=== PATIENT | female | born 2000 | race African-American/Black ===

== ENCOUNTER 2019-08-07 16:31 | Emergency (ER) | payer SELFPAY ==
[~2019-08-07] VITALS: Ht 175.3 cm; Wt 83.0 kg
--- OUTSIDE RECORDS SUMMARY | 2019-08-07 16:34 | XMS REPORT | Clinical Summary ---
Author Author [facility] Address Unknown Phone Unavailable Care Team Providers Care Events Specialist Name Role Phone Sharpless PCP Allergies No Known Allergies Medications No known medications Active Problems Not on file Social History Date Tobacco Use Types Packs/Day Years Used Never Smoker Smokeless Tobacco: Never Used Sex Assigned at Date Recorded Not on file Industry Job Start Date Occupation Not on file Not on file Not on file Travel End Travel History Travel Start No recent travel history available. Last Filed Vital Signs Not on file Plan of Treatment Not on file Results Not on fileafter 08/06/2018 Insurance Payer Benefit Subscriber ID Type Phone Address Plan / Group MEDICAID - MEDICAID MGD MEDICAID xxxxxxxxx [employer] id [employer] Non-Contra cted
--- OUTSIDE RECORDS SUMMARY | 2019-08-07 16:35 | XMS REPORT | Continuity of Care Document ---
Author Author [facility] t Organization [facility] Address [address] [place] [address] Phone Unavailable Care Team Providers Care Packaging Clerk Name Role Phone Sharpless PCP Payers Payer Name Policy Type Policy Number Effective Date Expiration Date S ource Problems This patient has no known problems. Allergies, Adverse Reactions, Alerts Allergy Name Allergy Type Status Severity Reaction(s) Onset Date Inacti ve Date Treating Clinician Comments Source No Known Allergies DA Active U 2019-03-22 00:00:00 [facility] No Known Allergies DA Active U 2016-02-27 00:00:00 [facility] Social History Social Habit Start Date Stop Date Quantity Comments Source Sex Assigned At [facility] Smoking Status Start Date Stop Date Source Never smoker [facility] Medications This patient has no known medications. Procedures This patient has no known procedures. Results Test Description Test Time Test Comments Results Result Comments Source URINALYSIS COMPLETE 2019-06-03 21:30:00 Test Item UA COLOR (test code = COLU) YELLOW YELLOW UA APPEARANCE (test code = APPU) SLIGHT CLOUDY CLEAR UA GLUCOSE DIPSTICK (test code = DGLUU) NORMAL MG/DL NORMAL UA BILIRUBIN DIPSTICK (test code = BILU) NEGATIVE MG/DL NEGATIVE UA KETONE DIPSTICK (test code = KETU) 5 MG/DL NEGATIVE UA SPECIFIC GRAVITY (test code = SGU) 1.015 1.003-1.030 N UA BLOOD DIPSTICK (test code = RADHA) NEGATIVE Indra/mm3 NEGATIVE UA PH DIPSTICK (test code = ABDIFATAH) 7.0 5.0-9.0 N UA PROTEIN DIPSTICK (test code = PROU) NEGATIVE MG/DL NEGATIVE UA UROBILINIOGEN DIPSTICK (test code = URO) 1 MG/DL NORMAL A UA NITRITE DIPSTICK (test code = CHIKA) NEGATIVE NEGATIVE UA LEUKOCYTE ESTERASE DIPSTICK (test code = LEUU) TRACE /mm3 NEGA TIVE A UA CULTURE NEEDED? (test code = UACULT) YES,WBC>10 & EPI<25 Criteria Culture Chk SOURCE OF URINE: CLEAN CATCHUA [id number] 21:30:00* Test Item Value Reference Range Interpretation Comments UA RBC (test code = RBCU) 0-3 RBC/HPF 0-3 UA WBC (test code = XWBCU) 10-20 WBC/HPF 0-5 A UA EPITHELIAL CELLS (test code = EPIU) FEW EPI/HPF FEW UA BACTERIA (test code = XBACU) MODERATE NONE A SOURCE OF URINE: CLEAN CATCHUR HCG [id number] 21:30:00* Test Item Value Reference Range Interpretation Comments UR HCG QUAL (test code = HCGQLU) NEGATIVE NEGATIVE SOURCE OF URINE: CLEAN CATCHURINALYSIS [id number] 21:19:00* Test Item Value Reference Range Interpretation Comments UA COLOR (test code = COLU) YELLOW YELLOW UA APPEARANCE (test code = APPU) SLIGHT CLOUDY CLEAR UA GLUCOSE DIPSTICK (test code = DGLUU) NORMAL MG/DL NORMAL UA BILIRUBIN DIPSTICK (test code = BILU) NEGATIVE MG/DL NEGATIVE UA KETONE DIPSTICK (test code = KETU) 5 MG/DL NEGATIVE UA SPECIFIC GRAVITY (test code = SGU) 1.015 1.003-1.030 N UA BLOOD DIPSTICK (test code = RADHA) NEGATIVE Indra/mm3 NEGATIVE UA PH DIPSTICK (test code = ABDIFATAH) 7.0 5.0-9.0 N UA PROTEIN DIPSTICK (test code = PROU) NEGATIVE MG/DL NEGATIVE UA UROBILINIOGEN DIPSTICK (test code = URO) 1 MG/DL NORMAL A UA NITRITE DIPSTICK (test code = CHIKA) NEGATIVE NEGATIVE UA LEUKOCYTE ESTERASE DIPSTICK (test code = LEUU) TRACE /mm3 NEGA TIVE A UA CULTURE NEEDED? (test code = UACULT) Criteria Culture Chk SOURCE OF URINE: CLEAN CATCHUA [id number] 21:19:00* Test Item Value Reference Range Interpretation Comments UA RBC (test code = RBCU) RBC/HPF 0-3 UA WBC (test code = XWBCU) WBC/HPF 0-5 UA EPITHELIAL CELLS (test code = EPIU) EPI/HPF FEW UA BACTERIA (test code = XBACU) NONE SOURCE OF URINE: CLEAN CATCHUR HCG [id number] 21:19:00* Test Item Value Reference Range Interpretation Comments UR HCG QUAL (test code = HCGQLU) NEGATIVE NEGATIVE SOURCE OF URINE: CLEAN CATCHURINALYSIS [id number] 21:18:00* Test Item Value Reference Range Interpretation Comments UA COLOR (test code = COLU) YELLOW YELLOW UA APPEARANCE (test code = APPU) SLIGHT CLOUDY CLEAR UA GLUCOSE DIPSTICK (test code = DGLUU) NORMAL MG/DL NORMAL UA BILIRUBIN DIPSTICK (test code = BILU) NEGATIVE MG/DL NEGATIVE UA KETONE DIPSTICK (test code = KETU) 5 MG/DL NEGATIVE UA SPECIFIC GRAVITY (test code = SGU) 1.015 1.003-1.030 N UA BLOOD DIPSTICK (test code = RADHA) NEGATIVE Idnra/mm3 NEGATIVE UA PH DIPSTICK (test code = ABDIFATAH) 7.0 5.0-9.0 N UA PROTEIN DIPSTICK (test code = PROU) NEGATIVE MG/DL NEGATIVE UA UROBILINIOGEN DIPSTICK (test code = URO) 1 MG/DL NORMAL A UA NITRITE DIPSTICK (test code = CHIKA) NEGATIVE NEGATIVE UA LEUKOCYTE ESTERASE DIPSTICK (test code = LEUU) TRACE /mm3 NEGA TIVE A UA CULTURE NEEDED? (test code = UACULT) Criteria Culture Chk SOURCE OF URINE: CLEAN CATCHUA [id number] 21:18:00* Test Item Value Reference Range Interpretation Comments UA RBC (test code = RBCU) RBC/HPF 0-3 UA WBC (test code = XWBCU) WBC/HPF 0-5 UA EPITHELIAL CELLS (test code = EPIU) EPI/HPF FEW UA BACTERIA (test code = XBACU) NONE SOURCE OF URINE: CLEAN CATCHUR HCG [id number] 21:18:00* Test Item Value Reference Range Interpretation Comments UR HCG QUAL (test code = HCGQLU) NEGATIVE SOURCE OF URINE: CLEAN CATCHURINALYSIS [id number] 21:18:00* Test Item Value Reference Range Interpretation Comments UA COLOR (test code = COLU) YELLOW YELLOW UA APPEARANCE (test code = APPU) SLIGHT CLOUDY CLEAR UA GLUCOSE DIPSTICK (test code = DGLUU) NORMAL MG/DL NORMAL UA BILIRUBIN DIPSTICK (test code = BILU) NEGATIVE MG/DL NEGATIVE UA KETONE DIPSTICK (test code = KETU) 5 MG/DL NEGATIVE UA SPECIFIC GRAVITY (test code = SGU) 1.015 1.003-1.030 N UA BLOOD DIPSTICK (test code = RADHA) NEGATIVE Indra/mm3 NEGATIVE UA PH DIPSTICK (test code = ABDIFATAH) 7.0 5.0-9.0 N UA PROTEIN DIPSTICK (test code = PROU) NEGATIVE MG/DL NEGATIVE UA UROBILINIOGEN DIPSTICK (test code = URO) 1 MG/DL NORMAL A UA NITRITE DIPSTICK (test code = CHIKA) NEGATIVE NEGATIVE UA LEUKOCYTE ESTERASE DIPSTICK (test code = LEUU) TRACE /mm3 NEGA TIVE A UA CULTURE NEEDED? (test code = UACULT) Criteria Culture Chk SOURCE OF URINE: CLEAN CATCHUA [id number] 21:18:00* Test Item Value Reference Range Interpretation Comments UA RBC (test code = RBCU) RBC/HPF 0-3 UA WBC (test code = XWBCU) WBC/HPF 0-5 UA EPITHELIAL CELLS (test code = EPIU) EPI/HPF FEW UA BACTERIA (test code = XBACU) NONE SOURCE OF URINE: CLEAN CATCHUR HCG [id number] 21:18:00* Test Item Value Reference Range Interpretation Comments UR HCG QUAL (test code = HCGQLU) NEGATIVE SOURCE OF URINE: CLEAN CATCHUrine [id number] 08:59:09 C Urine Added by [email or web address] growth at 24 hours. No growth at [address] Chest w/ [id number] 03:56:53Patient: DANK GARNICA Date/Time05/22/2019 03:41 CDTReason for ExamTraumaReportLOCATION: [id number]: CT CHEST WITH CONTRASTEXAM: CT ABDOMEN AND PELVIS WITH CONTRASTINDICATION: , TraumaCOMPARISON: None.TECHNIQUE: Helically acquired axial CT images of the chest, abdomen, and pelvis were obtained. 100 ml of Omnipaque 300 was given intravenously. Up-to-date CT equipment and radiation dose reduction techniques were utilized. Automatic exposure control was utilized.FINDINGS:Limited views the inferior neck soft tissues are normal.No mediastinal hematoma or aortic injury. The heart is normal in size. No pericardial effusion is seen. No mediastinal or hilar adenopathy is seen.The trachea and main bronchi are patent. No pneumothorax or pleural effusion is seen. No lung laceration or contusion.Liver and spleen are intact. Adrenal glands and pancreas normal. Gallbladder is unremarkable. Abdomen distention. Portal vascular is patent.Kidneys enhance symmetrically. No renal laceration or contusion. No hydronephrosis or hydroureter. Urinary bladder is intact. Uterus and adnexal structures are age-appropriate in appearance.No bowel abnormality seen to suggest injury. No free air or free fluid is present. No bowel obstruc tion.Abdominal aorta is intact and normal in caliber. IVC is normal. Bones are i ntact. Peripheral soft tissues are unremarkable.IMPRESSION: No traumatic injury identified. Final Dictated by: MD Hobbs Jesse MDictated DT/TM: 05/22/2019 3:53 amSigned by: MD Hobbs Jesse MSigned (Electronic Signature): 05/22/2019 3:56 amCT Abdomen and Pelvis w/ [id number] 03:56:53Patient: DANK GARNICA Date/Time05/22/2019 03:41 CDTReason for ExamTraumaReportLOCATION: [id number]: CT CHEST WITH CONTRASTEXAM: CT ABDOMEN AND PELVIS WITH CONTRASTINDICATION: , Trauma COMPARISON: None.TECHNIQUE: Helically acquired axial CT images of the chest, abd omen, and pelvis were obtained. 100 ml of Omnipaque 300 was given intravenously. Up-to-date CT equipment and radiation dose reduction techniques were utilized. Automatic exposure control was utilized.FINDINGS:Limited views the inferior neck soft tissues are normal.No mediastinal hematoma or aortic injury. The heart is normal in size. No pericardial effusion is seen. No mediastinal or hilar adenop athy is seen.The trachea and main bronchi are patent. No pneumothorax or pleural effusion is seen. No lung laceration or contusion.Liver and spleen are intact. Adrenal glands and pancreas normal. Gallbladder is unremarkable. Abdomen distent ion. Portal vascular is patent.Kidneys enhance symmetrically. No renal laceratio n or contusion. No hydronephrosis or hydroureter. Urinary bladder is intact. Pierron eric and adnexal structures are age-appropriate in appearance.No bowel abnormalit y seen to suggest injury. No free air or free fluid is present. No bowel obstruc tion.Abdominal aorta is intact and normal in caliber. IVC is normal. Bones are i ntact. Peripheral soft tissues are unremarkable.IMPRESSION: No traumatic injury identified. Final Dictated by: MD Hobbs Jesse MDictated DT/TM: 05/22/2019 3:53 amSigned by: MD Hobbs Jesse MSigned (Electronic Signature): 05/22/2019 3:56 [facility] [id number] 03:51:09Patient: DANK GARNICA Date/Time05/22/2019 03:41 CDTReason for ExamTraumaReportLOCATION: [id number]: CT HEAD WITHOUT CONTRASTINDICATION: Trauma,COMPARISON: None.TECHNIQUE: Multiple CT images of the head were obtained. No intravenous contrast was given. Up-to-date CT equipment and radiation dose reduction techniques were utilized. Automatic exposure control was utilized.FINDINGS: No intracranial hemorrhage or extra-axia l collection is seen. No midline shift or mass effect is identified. There is no territorial infarct. The ventricles, sulci and cisterns are normal.The calvarium is intact. Peripheral soft tissues are normal. Paranasal sinuses and mastoid air cells are clear.IMPRESSION: No intracranial hemorrhage or fracture. EXAM : CT CERVICAL SPINE WITHOUT CONTRASTINDICATION: Neck pain, TraumaCOMPARISON: No ne.TECHNIQUE: Axially oriented CT images were obtained through the entire cervi clifford spine, without contrast. Coronal and sagittal reformations are also provide d. Up-to-date CT equipment and radiation dose reduction techniques were utilize d. Automatic exposure control was utilized.FINDINGS:No fracture, malalignment o r other bony abnormality is identified. Prevertebral soft tissues are normal. De ep soft tissue of the neck are normal.Visualized lung apices and upper mediastin um are normal. Limited views of the skull base, paranasal sinuses, and mastoid a ir cells are unremarkable.IMPRESSION: No fracture or dislocation of the cervical spine. Final Dictated by: MD Hobbs Jesse MDictated DT/TM: 04/30 3:49 amSigned by: MD Hobbs Jesse MSigned (Electronic Signature): 3:51 amCT Spine Cervical w/o [id number] 03:51:09Patient: DANK GARNICA Date/Time05/22/2019 03:41 CDTReason for ExamTraumaReportLOCATION: [id number]: CT HEAD WITHOUT CONTRASTINDICATION: Trauma,COMPARISON: None.TECHNIQUE: Multiple CT images of the head were obtained. No intravenous contrast was given. Up-to-date CT equipment and radiation dose reduction techniques were utilized. Automatic exposure control was utilized.FINDINGS: No intracranial hemorrhage or extra-axia l collection is seen. No midline shift or mass effect is identified. There is no territorial infarct. The ventricles, sulci and cisterns are normal.The calvarium is intact. Peripheral soft tissues are normal. Paranasal sinuses and mastoid air cells are clear.IMPRESSION: No intracranial hemorrhage or fracture. EXAM : CT CERVICAL SPINE WITHOUT CONTRASTINDICATION: Neck pain, TraumaCOMPARISON: No ne.TECHNIQUE: Axially oriented CT images were obtained through the entire cervi clifford spine, without contrast. Coronal and sagittal reformations are also provide d. Up-to-date CT equipment and radiation dose reduction techniques were utilize d. Automatic exposure control was utilized.FINDINGS:No fracture, malalignment o r other bony abnormality is identified. Prevertebral soft tissues are normal. De ep soft tissue of the neck are normal.Visualized lung apices and upper mediastin um are normal. Limited views of the skull base, paranasal sinuses, and mastoid a ir cells are unremarkable.IMPRESSION: No fracture or dislocation of the cervical spine. Final Dictated by: MD Hobbs Jesse MDictated DT/TM: 04/30 3:49 amSigned by: MD Hobbs Jesse MSigned (Electronic Signature): 3:51 amComprehensive Metabolic [id number] 02:49:20* Test Item Value Reference Range Interpretation Comments Sodium Level (test code = Sodium Level) 141.0 mmol/L 135.0-145.0 Potassium Level (test code = Potassium Level) 3.5 mmol/L 3.5-5.1 Chloride Level (test code = Chloride Level) 103 mmol/L 98-105 CO2 (test code = CO2) 22 mmol/L 22-29 Anion Gap (test code = Anion Gap) 16 mmol/L 7-16 BUN (test code = BUN) 12.60 mg/dL 6.00-20.00 Creatinine Level (test code = Creatinine Level) 0.70 mg/dL 0.50-0 .90 BUN/Creat Ratio (test code = BUN/Creat Ratio) 18 N Glucose Level (test code = Glucose Level) 119 mg/dL 70-115 H Calcium Level (test code = Calcium Level) 9.2 mg/dL 8.3-10.5 Alk Phos (test code = Alk Phos) 76 U/L 35-104 Bilirubin Total (test code = Bilirubin Total) 0.3 mg/dL 0.1-0.9 Albumin Level (test code = Albumin Level) 4.5 g/dL 3.5-5.2 Protein Total (test code = Protein Total) 8.2 g/dL 6.4-8.3 ALT (test code = ALT) 17 U/L 1-33 AST (test code = AST) 30 U/L 1-32 Globulin (test code = Globulin) 3.7 g/dL 2.9-3.1 H A/G Ratio (test code = A/G Ratio) 1.2 ratio N Comprehensive Metabolic [id number] 02:49:20* Test Item Value Reference Range Interpretation Comments Sodium Level (test code = Sodium Level) 141.0 mmol/L 135.0-145.0 Potassium Level (test code = Potassium Level) 3.5 mmol/L 3.5-5.1 Chloride Level (test code = Chloride Level) 103 mmol/L 98-105 CO2 (test code = CO2) 22 mmol/L 22-29 Anion Gap (test code = Anion Gap) 16 mmol/L 7-16 BUN (test code = BUN) 12.60 mg/dL 6.00-20.00 Creatinine Level (test code = Creatinine Level) 0.70 mg/dL 0.50-0 .90 BUN/Creat Ratio (test code = BUN/Creat Ratio) 18 N Glucose Level (test code = Glucose Level) 119 mg/dL 70-115 H Calcium Level (test code = Calcium Level) 9.2 mg/dL 8.3-10.5 Alk Phos (test code = Alk Phos) 76 U/L 35-104 Bilirubin Total (test code = Bilirubin Total) 0.3 mg/dL 0.1-0.9 Albumin Level (test code = Albumin Level) 4.5 g/dL 3.5-5.2 Protein Total (test code = Protein Total) 8.2 g/dL 6.4-8.3 ALT (test code = ALT) 17 U/L 1-33 AST (test code = AST) 30 U/L 1-32 Globulin (test code = Globulin) 3.7 g/dL 2.9-3.1 H A/G Ratio (test code = A/G Ratio) 1.2 ratio N eGFR AA (test code = eGFR AA) >60 mL/min/1.73 m2 N eGFR (estimated Glomerular Filtration Rate) is an estimated value, calculated from the patient's serum creatinine using the MDRD equation. It is NOT the patient's actual GFR. The eGFR provides a more clinically useful measure of kidney disease than serum creatinine alone.This calculation takes sex and race into account, if the information is provided. If the race is not provided, and the patient is -Aust[place], multiply by 1.212. If sex is not provided, and the patient is female, multiply by 0.742. Results for patients <18 years of age have not been validated by the MDRD study and should be interpreted with caution. eGFR Result Interpretation:eGFR > or = 60 is in the Normal RangeeGFR < 60 may mean kidney diseaseeGFR < 15 may mean kidney failure Ranges recommended by the National Kidney Foundation, http://nkdep.nih.gov Alcohol [id number] 02:49:20* Test Item Value Reference Range Interpretation Comments Ethanol Level (test code = Ethanol Level) 0.28 g/dL 0.00-0.01 H Intoxicated 0.080 g/dL or more Ethanol Inst (test code = Ethanol Inst) 284 N Comprehensive Metabolic [id number] 02:49:20* Test Item Value Reference Range Interpretation Comments Sodium Level (test code = Sodium Level) 141.0 mmol/L 135.0-145.0 Potassium Level (test code = Potassium Level) 3.5 mmol/L 3.5-5.1 Chloride Level (test code = Chloride Level) 103 mmol/L 98-105 CO2 (test code = CO2) 22 mmol/L 22-29 Anion Gap (test code = Anion Gap) 16 mmol/L 7-16 BUN (test code = BUN) 12.60 mg/dL 6.00-20.00 Creatinine Level (test code = Creatinine Level) 0.70 mg/dL 0.50-0 .90 BUN/Creat Ratio (test code = BUN/Creat Ratio) 18 N Glucose Level (test code = Glucose Level) 119 mg/dL 70-115 H Calcium Level (test code = Calcium Level) 9.2 mg/dL 8.3-10.5 Alk Phos (test code = Alk Phos) 76 U/L 35-104 Bilirubin Total (test code = Bilirubin Total) 0.3 mg/dL 0.1-0.9 Albumin Level (test code = Albumin Level) 4.5 g/dL 3.5-5.2 Protein Total (test code = Protein Total) 8.2 g/dL 6.4-8.3 ALT (test code = ALT) 17 U/L 1-33 AST (test code = AST) 30 U/L 1-32 Globulin (test code = Globulin) 3.7 g/dL 2.9-3.1 H A/G Ratio (test code = A/G Ratio) 1.2 ratio N eGFR AA (test code = eGFR AA) >60 mL/min/1.73 m2 N eGFR (estimated Glomerular Filtration Rate) is an estimated value, calculated from the patient's serum creatinine using the MDRD equation. It is NOT the patient's actual GFR. The eGFR provides a more clinically useful measure of kidney disease than serum creatinine alone.This calculation takes sex and race into account, if the information is provided. If the race is not provided, and the patient is -Austrian, multiply by 1.212. If sex is not provided, and the patient is female, multiply by 0.742. Results for patients <18 years of age have not been validated by the MDRD study and should be interpreted with caution. eGFR Result Interpretation:eGFR > or = 60 is in the Normal RangeeGFR < 60 may mean kidney diseaseeGFR < 15 may mean kidney failure Ranges recommended by the National Kidney Foundation, http://nkdep.nih.gov eGFR Non-AA (test code = eGFR Non-AA) >60.00 mL/min/1.73 m2 N eGFR (estimated Glomerular Filtration Rate) is an estimated value, calculated from the patient's serum creatinine using the MDRD equation. It is NOT the patient's actual GFR. The eGFR provides a more clinically useful measure of kidney disease than serum creatinine alone.This calculation takes sex and race into account, if the information is provided. If the race is not provided, and the patient is -Austrian, multiply by 1.212. If sex is not provided, and the patient is female, multiply by 0.742. Results for patients <18 years of age have not been validated by the MDRD study and should be interpreted with caution. eGFR Result Interpretation:eGFR > or = 60 is in the Normal RangeeGFR < 60 may mean kidney diseaseeGFR < 15 may mean kidney failure Ranges recommended by the National Kidney Foundation, http://nkdep.nih.gov Urine Drug [id number] 02:48:34* Test Item Value Reference Range Interpretation Comments Amphetamine Screen Ur (test code = Amphetamine Screen Ur) Negative Negative Barbiturate Screen Ur (test code = Barbiturate Screen Ur) Negative Negative Benzodiazepines Ur (test code = Benzodiazepines Ur) Negative Ne gative Cocaine Screen Ur (test code = Cocaine Screen Ur) Negative Nega tive U Methadone Scr (test code = U Methadone Scr) Negative Negative Opiate Screen Ur (test code = Opiate Screen Ur) Negative Negati ve U PCP Scrn (test code = U PCP Scrn) Negative Negative Cannabinoid Screen Ur (test code = Cannabinoid Screen Ur) Negative Negative U TCA (test code = U TCA) Negative Negative Th e results of all drug screen tests are only preliminary. Clinical consideration and professional judgment should be applied to any drug of abuse test result, particularly when preliminary positive results are obtained. Please order a separate confirmatory test if desired. Urinalysis [id number] 02:20:16* Test Item Value Reference Range Interpretation Comments UA WBC (test code = UA WBC) 0-5 0-5 UA RBC (test code = UA RBC) 0-5 0-5 UA Bacteria (test code = UA Bacteria) Few A UA Squam Epithelial (test code = UA Squam Epithelial) 6-10 A HCG Qualitative [id number] 02:18:46* Test Item Value Reference Range Interpretation Comments hCG Ur (test code = hCG Ur) Negative If the result is "Negative" in patients suspected to be , recommend retest with a sample obtained 48 to 72 hours later, or by ordering a quantitative assay. If the result is "Borderline" miquel ting should be repeated in 48 to 72 hours. Lot # (test code = Lot #) [id number] N Expiration Dt (test code = Expiration Dt) 2020-05-29 N Neg Control (test code = Neg Control) Negative Pos Control (test code = Pos Control) Positive Internal QC (test code = Internal QC) Acceptable Complete Blood Count with [id number] 02:15:27* Test Item Value Reference Range Interpretation Comments WBC (test code = WBC) 6.8 x10 4.4-10.5 RBC (test code = RBC) 4.18 x10 3.75-5.20 Hgb (test code = Hgb) 12.3 g/dL 12.2-14.8 MCV (test code = MCV) 91.60 fL 80.00-100.00 Hct (test code = Hct) 38.3 % 36.5-44.4 MCHC (test code = MCHC) 32.10 g/dL 32.00-37.50 MCH (test code = MCH) 29.4 pg 27.0-32.5 RDW CV (test code = RDW CV) 12.2 % 11.5-14.5 Platelets (test code = Platelets) 347.0 x10 140.0-440.0 MPV (test code = MPV) 9.7 fL N Slide Review (test code = Slide Review) Auto Auto Result created by [email or web address] nRBC (test code = nRBC) 0 N NRBC Abs (test code = NRBC Abs) 0.00 x10 N IPF (test code = IPF) 0 % N Automated [id number] 02:15:27* Test Item Value Reference Range Interpretation Comments Neutro Auto (test code = Neutro Auto) 66.2 % 36.0-70.0 Lymph Auto (test code = Lymph Auto) 27.7 % 12.0-44.0 [place] Auto (test code = [place] Auto) 5.2 % 0.0-11.0 Eos, Auto (test code = Eos, Auto) 0.3 % 0.0-7.0 Basophil Auto (test code = Basophil Auto) 0.3 % 0.0-2.0 Neutro Absolute (test code = Neutro Absolute) 4.5 x10 1.6-7.4 Lymph Absolute (test code = Lymph Absolute) 1.88 x10 .50-4.60 [place] Absolute (test code = [place] Absolute) .35 x10 .00-1.20 Eos Absolute (test code = Eos Absolute) 0.02 x10 0.00-0.74 Baso Absolute (test code = Baso Absolute) 0.02 x10 0.00-0.21 IG [id number] 02:15:27* Test Item Value Reference Range Interpretation Comments IG (test code = IG) 0.3 % 0.0-5.0 IG Abs (test code = IG Abs) 0 x10 N Urinalysis with Culture, if [id number] 02:10:15* Test Item Value Reference Range Interpretation Comments UA Color (test code = UA Color) STRAW Yellow UA Appear (test code = UA Appear) CLEAR Clear UA pH (test code = UA pH) 6.0 UA Spec Grav (test code = UA Spec Grav) 1.010 1.001-1.035 UA Glucose (test code = UA Glucose) NEG Negative UA Bili (test code = UA Bili) NEG Negative UA Ketones (test code = UA Ketones) NEG Negative UA Blood (test code = UA Blood) 10 cells/mcL Negative A UA Protein (test code = UA Protein) NEG Negative UA Urobilinogen (test code = UA Urobilinogen) .2 mg/dL >0.2 UA Nitrite (test code = UA Nitrite) NEG Negative UA Leuk Est (test code = UA Leuk Est) NEG Negative UA Micro Ind? (test code = UA Micro Ind?) Indicated Not Indicate d A COMPREHENSIVE METABOLIC [id number] 23:34:00* Test Item Value Reference Range Interpretation Comments SODIUM (test code = NA) 139 MMOL/L 137-145 N POTASSIUM (test code = K) 3.6 MMOL/L 3.5-5.1 N CHLORIDE (test code = CL) 101 MMOL/L 98-107 N CARBON DIOXIDE (test code = CO2) 28 MMOL/L 22-30 N GLUCOSE (test code = GLU) 90 MG/DL 74-106 N BLOOD UREA NITROGEN (test code = BUN) 10 MG/DL 7-17 N GLOMERULAR FILTRATION RATE (test code = GFR) > 60 Reporting units: ml/min/1.73 m2 (Modified MDRD Formula)Reference Range: > or = 60 ml/min/1.73 m2 CREATININE (test code = CREAT) 0.60 MG/DL 0.52-1.04 N TOTAL PROTEIN (test code = PROT) 8.6 G/DL 6.3-8.2 H ALBUMIN (test code = ALB) 4.5 G/DL 3.5-5.0 N CALCIUM (test code = CA) 9.3 MG/DL 8.4-10.2 N BILIRUBIN TOTAL (test code = BILT) 0.1 MG/DL 0.2-1.3 L SGOT/AST (test code = AST) 35 UNITS/L 14-36 N SGPT/ALT (test code = ALT) 19 UNITS/L <35 ALKALINE PHOSPHATASE (test code = ALKP) 81 UNITS/L 38-126 N [id number] 23:34:00* Test Item Value Reference Range Interpretation Comments LIPASE (test code = LIP) 94 UNITS/L 23-300 N HCG [id number] 23:34:00* Test Item Value Reference Range Interpretation Comments HCG SERUM (test code = HCG) < 2 IU/L ~~~~~~~~~~~~~~~~~~~~~~~~~~~~~~~~~~~~~~~~~~~~~~~~~~~~~~~~~~~~INTERPRETATION OF BHCG QN PERFORMED AT [facility] 0.2-1 WEEKS AFTER CONCEPTION 5-50 1-2 WEEKS AFTER CONCEPTION 50-500 2-3 WEEKS AFTER CONCEPTION 100-5,000 3-4 WEEKS AFTER CONCEPTION 500-10,000 4-5 WEEKS AFTER CONCEPTION 1,000-50,000 5-6 WEEKS AFTER CONCEPTION 10,000-100,0006-8 WEEKS AFTER CONCEPTION 15,000-200,0002-3 MONTHS 10,000-100,000 All values given in ida-International Units per milliliter. SPECIMENS WITH B-HCG LEVELS LESS THAN OR EQUAL TO 5 ida- International Units per milliliter WILL BE REPORTED ZERO OR "NEGATIVE." SPECIMENS WITHB-HCG LEVELS GREATER THAN OR EQUAL TO 25 ida-International Units per milliliter WILL BEREPORTED "POSITIVE." SPECIMENS WITH B-HCG LEVELS GREATERTHAN 5 ida-International Units per milliliter AND LESS THAN 25 ida- International Units per milliliterSHOULD HAVE ADDITIONAL BLOOD SAMPLE DRAWN 48 HOURSLATER AND REPEATED.~~~~~~~~~~~~~~~~~~~~~~~~~~~~~~~~~~~~~~~~~~~~~~~~~~~~~~~~~~~~ COMPREHENSIVE METABOLIC [id number] 23:18:00* Test Item Value Reference Range Interpretation Comments SODIUM (test code = NA) 139 MMOL/L 137-145 N POTASSIUM (test code = K) 3.6 MMOL/L 3.5-5.1 N CHLORIDE (test code = CL) 101 MMOL/L 98-107 N CARBON DIOXIDE (test code = CO2) 28 MMOL/L 22-30 N GLUCOSE (test code = GLU) 90 MG/DL 74-106 N BLOOD UREA NITROGEN (test code = BUN) 10 MG/DL 7-17 N GLOMERULAR FILTRATION RATE (test code = GFR) > 60 Reporting units: ml/min/1.73 m2 (Modified MDRD Formula)Reference Range: > or = 60 ml/min/1.73 m2 CREATININE (test code = CREAT) 0.60 MG/DL 0.52-1.04 N TOTAL PROTEIN (test code = PROT) 8.6 G/DL 6.3-8.2 H ALBUMIN (test code = ALB) 4.5 G/DL 3.5-5.0 N CALCIUM (test code = CA) 9.3 MG/DL 8.4-10.2 N BILIRUBIN TOTAL (test code = BILT) 0.1 MG/DL 0.2-1.3 L SGOT/AST (test code = AST) 35 UNITS/L 14-36 N SGPT/ALT (test code = ALT) 19 UNITS/L <35 ALKALINE PHOSPHATASE (test code = ALKP) 81 UNITS/L 38-126 N [id number] 23:18:00* Test Item Value Reference Range Interpretation Comments LIPASE (test code = LIP) 94 UNITS/L 23-300 N HCG [id number] 23:18:00* Test Item Value Reference Range Interpretation Comments HCG SERUM (test code = HCG) IU/L COMPREHENSIVE METABOLIC [id number] 23:17:00* Test Item Value Reference Range Interpretation Comments SODIUM (test code = NA) 139 MMOL/L 137-145 N POTASSIUM (test code = K) 3.6 MMOL/L 3.5-5.1 N CHLORIDE (test code = CL) 101 MMOL/L 98-107 N CARBON DIOXIDE (test code = CO2) 28 MMOL/L 22-30 N GLUCOSE (test code = GLU) MG/DL 74-106 BLOOD UREA NITROGEN (test code = BUN) MG/DL 7-17 GLOMERULAR FILTRATION RATE (test code = GFR) > 60 Reporting units: ml/min/1.73 m2 (Modified MDRD Formula)Reference Range: > or = 60 ml/min/1.73 m2 CREATININE (test code = CREAT) 0.60 MG/DL 0.52-1.04 N TOTAL PROTEIN (test code = PROT) G/DL 6.3-8.2 ALBUMIN (test code = ALB) 4.5 G/DL 3.5-5.0 N CALCIUM (test code = CA) MG/DL 8.7-9.7 BILIRUBIN TOTAL (test code = BILT) 0.1 MG/DL 0.2-1.3 L SGOT/AST (test code = AST) 35 UNITS/L 14-36 N SGPT/ALT (test code = ALT) UNITS/L <35 ALKALINE PHOSPHATASE (test code = ALKP) UNITS/L 38-126 [id number] 23:17:00* Test Item Value Reference Range Interpretation Comments LIPASE (test code = LIP) UNITS/L 23-300 HCG [id number] 23:17:00* Test Item Value Reference Range Interpretation Comments HCG SERUM (test code = HCG) IU/L COMPREHENSIVE METABOLIC [id number] 23:15:00* Test Item Value Reference Range Interpretation Comments SODIUM (test code = NA) 139 MMOL/L 137-145 N POTASSIUM (test code = K) 3.6 MMOL/L 3.5-5.1 N CHLORIDE (test code = CL) 101 MMOL/L 98-107 N CARBON DIOXIDE (test code = CO2) MMOL/L 22-30 GLUCOSE (test code = GLU) MG/DL 74-106 BLOOD UREA NITROGEN (test code = BUN) MG/DL 7-17 GLOMERULAR FILTRATION RATE (test code = GFR) CREATININE (test code = CREAT) MG/DL 0.52-1.04 TOTAL PROTEIN (test code = PROT) G/DL 6.3-8.2 ALBUMIN (test code = ALB) 4.5 G/DL 3.5-5.0 N CALCIUM (test code = CA) MG/DL 8.7-9.7 BILIRUBIN TOTAL (test code = BILT) MG/DL 0.2-1.3 SGOT/AST (test code = AST) UNITS/L 15-37 SGPT/ALT (test code = ALT) UNITS/L <35 ALKALINE PHOSPHATASE (test code = ALKP) UNITS/L 38-126 [id number] 23:15:00* Test Item Value Reference Range Interpretation Comments LIPASE (test code = LIP) UNITS/L 23-300 HCG [id number] 23:15:00* Test Item Value Reference Range Interpretation Comments HCG SERUM (test code = HCG) IU/L COMPREHENSIVE METABOLIC [id number] 23:14:00* Test Item Value Reference Range Interpretation Comments SODIUM (test code = NA) MMOL/L 137-145 POTASSIUM (test code = K) MMOL/L 3.5-5.1 CHLORIDE (test code = CL) MMOL/L 98-107 CARBON DIOXIDE (test code = CO2) MMOL/L 22-30 GLUCOSE (test code = GLU) MG/DL 74-106 BLOOD UREA NITROGEN (test code = BUN) MG/DL 7-17 GLOMERULAR FILTRATION RATE (test code = GFR) CREATININE (test code = CREAT) MG/DL 0.52-1.04 TOTAL PROTEIN (test code = PROT) G/DL 6.3-8.2 ALBUMIN (test code = ALB) 4.5 G/DL 3.5-5.0 N CALCIUM (test code = CA) MG/DL 8.7-9.7 BILIRUBIN TOTAL (test code = BILT) MG/DL 0.2-1.3 SGOT/AST (test code = AST) UNITS/L 15-37 SGPT/ALT (test code = ALT) UNITS/L <35 ALKALINE PHOSPHATASE (test code = ALKP) UNITS/L 38-126 [id number] 23:14:00* Test Item Value Reference Range Interpretation Comments LIPASE (test code = LIP) UNITS/L 23-300 HCG [id number] 23:14:00* Test Item Value Reference Range Interpretation Comments HCG SERUM (test code = HCG) IU/L URINALYSIS [id number] 23:11:00* Test Item Value Reference Range Interpretation Comments UA COLOR (test code = COLU) YELLOW YELLOW UA APPEARANCE (test code = APPU) CLEAR CLEAR UA GLUCOSE DIPSTICK (test code = DGLUU) NORMAL MG/DL NORMAL UA BILIRUBIN DIPSTICK (test code = BILU) NEGATIVE MG/DL NEGATIVE UA KETONE DIPSTICK (test code = KETU) NEGATIVE MG/DL NEGATIVE UA SPECIFIC GRAVITY (test code = SGU) 1.020 1.003-1.030 N UA BLOOD DIPSTICK (test code = RADHA) 250 Indra/mm3 NEGATIVE A UA PH DIPSTICK (test code = ABDIFATAH) 6.0 5.0-9.0 N UA PROTEIN DIPSTICK (test code = PROU) NEGATIVE MG/DL NEGATIVE UA UROBILINIOGEN DIPSTICK (test code = URO) 1 MG/DL NORMAL A UA NITRITE DIPSTICK (test code = CHIKA) NEGATIVE NEGATIVE UA LEUKOCYTE ESTERASE DIPSTICK (test code = LEUU) NEGATIVE /mm3 NEG ATIVE UA CULTURE NEEDED? (test code = UACULT) NO, WBC<10 Criteria Culture Chk SOURCE OF URINE: CLEAN CATCHUA [id number] 23:11:00* Test Item Value Reference Range Interpretation Comments UA RBC (test code = RBCU) 0-3 RBC/HPF 0-3 UA WBC (test code = XWBCU) 0-3 WBC/HPF 0-5 UA EPITHELIAL CELLS (test code = EPIU) MODERATE EPI/HPF FEW A UA BACTERIA (test code = XBACU) FEW NONE UA MUCUS (test code = MUCU) SLIGHT #/LPF NONE SOURCE OF URINE: CLEAN CATCHURINALYSIS [id number] 23:02:00* Test Item Value Reference Range Interpretation Comments UA COLOR (test code = COLU) YELLOW YELLOW UA APPEARANCE (test code = APPU) CLEAR CLEAR UA GLUCOSE DIPSTICK (test code = DGLUU) NORMAL MG/DL NORMAL UA BILIRUBIN DIPSTICK (test code = BILU) NEGATIVE MG/DL NEGATIVE UA KETONE DIPSTICK (test code = KETU) NEGATIVE MG/DL NEGATIVE UA SPECIFIC GRAVITY (test code = SGU) 1.020 1.003-1.030 N UA BLOOD DIPSTICK (test code = RADHA) 250 Indra/mm3 NEGATIVE A UA PH DIPSTICK (test code = ABDIFATAH) 6.0 5.0-9.0 N UA PROTEIN DIPSTICK (test code = PROU) NEGATIVE MG/DL NEGATIVE UA UROBILINIOGEN DIPSTICK (test code = URO) 1 MG/DL NORMAL A UA NITRITE DIPSTICK (test code = CHIKA) NEGATIVE NEGATIVE UA LEUKOCYTE ESTERASE DIPSTICK (test code = LEUU) NEGATIVE /mm3 NEG ATIVE UA CULTURE NEEDED? (test code = UACULT) Criteria Culture Chk SOURCE OF URINE: CLEAN CATCHUA [id number] 23:02:00* Test Item Value Reference Range Interpretation Comments UA RBC (test code = RBCU) RBC/HPF 0-3 UA WBC (test code = XWBCU) WBC/HPF 0-5 UA EPITHELIAL CELLS (test code = EPIU) EPI/HPF FEW UA BACTERIA (test code = XBACU) NONE SOURCE OF URINE: CLEAN CATCHURINALYSIS [id number] 23:02:00* Test Item Value Reference Range Interpretation Comments UA COLOR (test code = COLU) YELLOW YELLOW UA APPEARANCE (test code = APPU) CLEAR CLEAR UA GLUCOSE DIPSTICK (test code = DGLUU) NORMAL MG/DL NORMAL UA BILIRUBIN DIPSTICK (test code = BILU) NEGATIVE MG/DL NEGATIVE UA KETONE DIPSTICK (test code = KETU) NEGATIVE MG/DL NEGATIVE UA SPECIFIC GRAVITY (test code = SGU) 1.020 1.003-1.030 N UA BLOOD DIPSTICK (test code = RADHA) 250 Indra/mm3 NEGATIVE A UA PH DIPSTICK (test code = ABDIFATAH) 6.0 5.0-9.0 N UA PROTEIN DIPSTICK (test code = PROU) NEGATIVE MG/DL NEGATIVE UA UROBILINIOGEN DIPSTICK (test code = URO) 1 MG/DL NORMAL A UA NITRITE DIPSTICK (test code = CHIKA) NEGATIVE NEGATIVE UA LEUKOCYTE ESTERASE DIPSTICK (test code = LEUU) NEGATIVE /mm3 NEG ATIVE UA CULTURE NEEDED? (test code = UACULT) Criteria Culture Chk SOURCE OF URINE: CLEAN CATCHUA [id number] 23:02:00* Test Item Value Reference Range Interpretation Comments UA RBC (test code = RBCU) RBC/HPF 0-3 UA WBC (test code = XWBCU) WBC/HPF 0-5 UA EPITHELIAL CELLS (test code = EPIU) EPI/HPF FEW UA BACTERIA (test code = XBACU) NONE SOURCE OF URINE: CLEAN CATCHCBC W/AUTO [id number] 22:56:00* Test Item Value Reference Range Interpretation Comments WHITE BLOOD CELL (test code = WBC) 6.1 K/MM3 3.8-9.8 N RED BLOOD CELL (test code = RBC) 4.52 M/MM3 3.58-4.97 N HEMOGLOBIN (test code = HGB) 14.0 G/DL 11.2-14.9 N HEMATOCRIT (test code = HCT) 42.5 % 33.2-43.5 N MEAN CELL VOLUME (test code = MCV) 94 fL 80.7-99.1 N MEAN CELL HGB (test code = MCH) 31.0 pg 27.0-34.1 N MEAN CELL HGB CONCETRATION (test code = MCHC) 32.9 % 32.2-35. 7 N RED CELL DISTRIBUTION WIDTH (test code = RDW) 12.3 % 12.1-15. 2 N PLATELET COUNT (test code = PLT) 299 K/MM3 129-368 N MEAN PLATELET VOLUME (test code = MPV) 9.9 fl 7.4-10.4 N NEUTROPHIL % (test code = NT%) 48.0 % 43-75 N IMMATURE GRANULOCYTE % (test code = IG%) 0.2 % 0.0-2.0 N LYMPHOCYTE % (test code = LY%) 41.7 % 14-44 N MONOCYTE % (test code = MO%) 7.8 % 4-13 N EOSINOPHIL % (test code = EO%) 1.8 % 0-6 N BASOPHIL % (test code = BA%) 0.5 % 0-2 N NUCLEATED RBC % (test code = NRBC%) 0.0 % 0-1.0 N NEUTROPHIL # (test code = NT#) 2.94 K/mm3 2.0-7.6 N IMMATURE GRANULOCYTE # (test code = IG#) 0.01 x10 3/uL 0-0.03 N LYMPHOCYTE # (test code = LY#) 2.55 K/mm3 1.0-3.8 N MONOCYTE # (test code = MO#) 0.48 K/mm3 0.1-0.8 N EOSINOPHIL # (test code = EO#) 0.11 K/mm3 0.0-0.2 N BASOPHIL # (test code = BA#) 0.03 K/mm3 0.0-0.2 N NUCLEATED RBC # (test code = NRBC#) 0.00 K/mm3 0.0-0.1 N COMPREHENSIVE METABOLIC [id number] 18:07:00* Test Item Value Reference Range Interpretation Comments SODIUM (test code = NA) 140 MMOL/L 137-145 N POTASSIUM (test code = K) 3.6 MMOL/L 3.5-5.1 N CHLORIDE (test code = CL) 101 MMOL/L 98-107 N CARBON DIOXIDE (test code = CO2) 23 MMOL/L 22-30 N GLUCOSE (test code = GLU) 77 MG/DL 74-106 N BLOOD UREA NITROGEN (test code = BUN) 17 MG/DL 7-17 N GLOMERULAR FILTRATION RATE (test code = GFR) > 60 Reporting units: ml/min/1.73 m2 (Modified MDRD Formula)Reference Range: > or = 60 ml/min/1.73 m2 CREATININE (test code = CREAT) 0.60 MG/DL 0.52-1.04 N TOTAL PROTEIN (test code = PROT) 10.2 G/DL 6.3-8.2 H ALBUMIN (test code = ALB) 5.1 G/DL 3.5-5.0 H CALCIUM (test code = CA) 9.8 MG/DL 8.4-10.2 N BILIRUBIN TOTAL (test code = BILT) 0.9 MG/DL 0.2-1.3 N SGOT/AST (test code = AST) 44 UNITS/L 14-36 H SGPT/ALT (test code = ALT) 23 UNITS/L <35 ALKALINE PHOSPHATASE (test code = ALKP) 94 UNITS/L 38-126 N HCG SERUM [id number] 18:07:00* Test Item Value Reference Range Interpretation Comments HCG SERUM QUAL (test code = HCGQL) NEGATIVE NEGATIVE A COMPREHENSIVE METABOLIC [id number] 18:06:00* Test Item Value Reference Range Interpretation Comments SODIUM (test code = NA) 140 MMOL/L 137-145 N POTASSIUM (test code = K) 3.6 MMOL/L 3.5-5.1 N CHLORIDE (test code = CL) 101 MMOL/L 98-107 N CARBON DIOXIDE (test code = CO2) 23 MMOL/L 22-30 N GLUCOSE (test code = GLU) MG/DL 74-106 BLOOD UREA NITROGEN (test code = BUN) MG/DL 7-17 GLOMERULAR FILTRATION RATE (test code = GFR) > 60 Reporting units: ml/min/1.73 m2 (Modified MDRD Formula)Reference Range: > or = 60 ml/min/1.73 m2 CREATININE (test code = CREAT) 0.60 MG/DL 0.52-1.04 N TOTAL PROTEIN (test code = PROT) G/DL 6.3-8.2 ALBUMIN (test code = ALB) 5.1 G/DL 3.5-5.0 H CALCIUM (test code = CA) MG/DL 8.7-9.7 BILIRUBIN TOTAL (test code = BILT) 0.9 MG/DL 0.2-1.3 N SGOT/AST (test code = AST) 44 UNITS/L 14-36 H SGPT/ALT (test code = ALT) UNITS/L <35 ALKALINE PHOSPHATASE (test code = ALKP) UNITS/L 38-126 HCG SERUM [id number] 18:06:00* Test Item Value Reference Range Interpretation Comments HCG SERUM QUAL (test code = HCGQL) NEGATIVE NEGATIVE A COMPREHENSIVE METABOLIC [id number] 18:04:00* Test Item Value Reference Range Interpretation Comments SODIUM (test code = NA) 140 MMOL/L 137-145 N POTASSIUM (test code = K) 3.6 MMOL/L 3.5-5.1 N CHLORIDE (test code = CL) 101 MMOL/L 98-107 N CARBON DIOXIDE (test code = CO2) MMOL/L 22-30 GLUCOSE (test code = GLU) MG/DL 74-106 BLOOD UREA NITROGEN (test code = BUN) MG/DL 7-17 GLOMERULAR FILTRATION RATE (test code = GFR) CREATININE (test code = CREAT) MG/DL 0.52-1.04 TOTAL PROTEIN (test code = PROT) G/DL 6.3-8.2 ALBUMIN (test code = ALB) 5.1 G/DL 3.5-5.0 H CALCIUM (test code = CA) MG/DL 8.7-9.7 BILIRUBIN TOTAL (test code = BILT) MG/DL 0.2-1.3 SGOT/AST (test code = AST) UNITS/L 15-37 SGPT/ALT (test code = ALT) UNITS/L <35 ALKALINE PHOSPHATASE (test code = ALKP) UNITS/L 38-126 HCG SERUM [id number] 18:04:00* Test Item Value Reference Range Interpretation Comments HCG SERUM QUAL (test code = HCGQL) NEGATIVE COMPREHENSIVE METABOLIC [id number] 18:04:00* Test Item Value Reference Range Interpretation Comments SODIUM (test code = NA) 140 MMOL/L 137-145 N POTASSIUM (test code = K) 3.6 MMOL/L 3.5-5.1 N CHLORIDE (test code = CL) 101 MMOL/L 98-107 N CARBON DIOXIDE (test code = CO2) MMOL/L 22-30 GLUCOSE (test code = GLU) MG/DL 74-106 BLOOD UREA NITROGEN (test code = BUN) MG/DL 7-17 GLOMERULAR FILTRATION RATE (test code = GFR) CREATININE (test code = CREAT) MG/DL 0.52-1.04 TOTAL PROTEIN (test code = PROT) G/DL 6.3-8.2 ALBUMIN (test code = ALB) 5.1 G/DL 3.5-5.0 H CALCIUM (test code = CA) MG/DL 8.7-9.7 BILIRUBIN TOTAL (test code = BILT) MG/DL 0.2-1.3 SGOT/AST (test code = AST) UNITS/L 15-37 SGPT/ALT (test code = ALT) UNITS/L <35 ALKALINE PHOSPHATASE (test code = ALKP) UNITS/L 38-126 HCG SERUM [id number] 18:04:00* Test Item Value Reference Range Interpretation Comments HCG SERUM QUAL (test code = HCGQL) NEGATIVE NEGATIVE A COMPREHENSIVE METABOLIC [id number] 18:02:00* Test Item Value Reference Range Interpretation Comments SODIUM (test code = NA) MMOL/L 137-145 POTASSIUM (test code = K) MMOL/L 3.5-5.1 CHLORIDE (test code = CL) 101 MMOL/L 98-107 N CARBON DIOXIDE (test code = CO2) MMOL/L 22-30 GLUCOSE (test code = GLU) MG/DL 74-106 BLOOD UREA NITROGEN (test code = BUN) MG/DL 7-17 GLOMERULAR FILTRATION RATE (test code = GFR) CREATININE (test code = CREAT) MG/DL 0.52-1.04 TOTAL PROTEIN (test code = PROT) G/DL 6.3-8.2 ALBUMIN (test code = ALB) 5.1 G/DL 3.5-5.0 H CALCIUM (test code = CA) MG/DL 8.7-9.7 BILIRUBIN TOTAL (test code = BILT) MG/DL 0.2-1.3 SGOT/AST (test code = AST) UNITS/L 15-37 SGPT/ALT (test code = ALT) UNITS/L <35 ALKALINE PHOSPHATASE (test code = ALKP) UNITS/L 38-126 HCG SERUM [id number] 18:02:00* Test Item Value Reference Range Interpretation Comments HCG SERUM QUAL (test code = HCGQL) NEGATIVE URINALYSIS [id number] 18:01:00* Test Item Value Reference Range Interpretation Comments UA COLOR (test code = COLU) YELLOW YELLOW UA APPEARANCE (test code = APPU) CLEAR CLEAR UA GLUCOSE DIPSTICK (test code = DGLUU) NORMAL MG/DL NORMAL UA BILIRUBIN DIPSTICK (test code = BILU) NEGATIVE MG/DL NEGATIVE UA KETONE DIPSTICK (test code = KETU) 150 MG/DL NEGATIVE A UA SPECIFIC GRAVITY (test code = SGU) 1.025 1.003-1.030 N UA BLOOD DIPSTICK (test code = RADHA) NEGATIVE Indra/mm3 NEGATIVE UA PH DIPSTICK (test code = ABDIFATAH) 6.0 5.0-9.0 N UA PROTEIN DIPSTICK (test code = PROU) 30 MG/DL NEGATIVE A UA UROBILINIOGEN DIPSTICK (test code = URO) NORMAL MG/DL NORMAL UA NITRITE DIPSTICK (test code = CHIKA) NEGATIVE NEGATIVE UA LEUKOCYTE ESTERASE DIPSTICK (test code = LEUU) NEGATIVE /mm3 NEG ATIVE UA CULTURE NEEDED? (test code = UACULT) NO, WBC<10 Criteria Culture Chk UA [id number] 18:01:00* Test Item Value Reference Range Interpretation Comments UA RBC (test code = RBCU) NONE RBC/HPF 0-3 UA WBC (test code = XWBCU) NONE WBC/HPF 0-5 UA EPITHELIAL CELLS (test code = EPIU) MODERATE EPI/HPF FEW A UA BACTERIA (test code = XBACU) FEW NONE UA MUCUS (test code = MUCU) MODERATE #/LPF NONE A CBC W/O [id number] 17:59:00* Test Item Value Reference Range Interpretation Comments WHITE BLOOD CELL (test code = WBC) 7.6 K/MM3 3.8-9.8 N RED BLOOD CELL (test code = RBC) 4.84 M/MM3 3.58-4.97 N HEMOGLOBIN (test code = HGB) 14.7 G/DL 11.2-14.9 N HEMATOCRIT (test code = HCT) 44.9 % 33.2-43.5 H MEAN CELL VOLUME (test code = MCV) 93 fL 80.7-99.1 N MEAN CELL HGB (test code = MCH) 30.4 pg 27.0-34.1 N MEAN CELL HGB CONCETRATION (test code = MCHC) 32.7 % 32.2-35. 7 N RED CELL DISTRIBUTION WIDTH (test code = RDW) 12.9 % 12.1-15. 2 N PLATELET COUNT (test code = PLT) 383 K/MM3 129-368 H NEUTROPHIL # (test code = NT#) 4.12 K/mm3 2.0-7.6 N IMMATURE GRANULOCYTE # (test code = IG#) 0.01 x10 3/uL 0-0.03 N LYMPHOCYTE # (test code = LY#) 2.72 K/mm3 1.0-3.8 N MONOCYTE # (test code = MO#) 0.68 K/mm3 0.1-0.8 N EOSINOPHIL # (test code = EO#) 0.08 K/mm3 0.0-0.2 N BASOPHIL # (test code = BA#) 0.02 K/mm3 0.0-0.2 N NUCLEATED RBC # (test code = NRBC#) 0.00 K/mm3 0.0-0.1 N URINALYSIS [id number] 17:53:00* Test Item Value Reference Range Interpretation Comments UA COLOR (test code = COLU) YELLOW YELLOW UA APPEARANCE (test code = APPU) CLEAR CLEAR UA GLUCOSE DIPSTICK (test code = DGLUU) NORMAL MG/DL NORMAL UA BILIRUBIN DIPSTICK (test code = BILU) NEGATIVE MG/DL NEGATIVE UA KETONE DIPSTICK (test code = KETU) 150 MG/DL NEGATIVE A UA SPECIFIC GRAVITY (test code = SGU) 1.025 1.003-1.030 N UA BLOOD DIPSTICK (test code = RADHA) NEGATIVE Indra/mm3 NEGATIVE UA PH DIPSTICK (test code = ABDIFATAH) 6.0 5.0-9.0 N UA PROTEIN DIPSTICK (test code = PROU) 30 MG/DL NEGATIVE A UA UROBILINIOGEN DIPSTICK (test code = URO) NORMAL MG/DL NORMAL UA NITRITE DIPSTICK (test code = CHIKA) NEGATIVE NEGATIVE UA LEUKOCYTE ESTERASE DIPSTICK (test code = LEUU) NEGATIVE /mm3 NEG ATIVE UA CULTURE NEEDED? (test code = UACULT) Criteria Culture Chk UA [id number] 17:53:00* Test Item Value Reference Range Interpretation Comments UA RBC (test code = RBCU) RBC/HPF 0-3 UA WBC (test code = XWBCU) WBC/HPF 0-5 UA EPITHELIAL CELLS (test code = EPIU) EPI/HPF FEW UA BACTERIA (test code = XBACU) NONE URINALYSIS [id number] 17:53:00* Test Item Value Reference Range Interpretation Comments UA COLOR (test code = COLU) YELLOW YELLOW UA APPEARANCE (test code = APPU) CLEAR CLEAR UA GLUCOSE DIPSTICK (test code = DGLUU) NORMAL MG/DL NORMAL UA BILIRUBIN DIPSTICK (test code = BILU) NEGATIVE MG/DL NEGATIVE UA KETONE DIPSTICK (test code = KETU) 150 MG/DL NEGATIVE A UA SPECIFIC GRAVITY (test code = SGU) 1.025 1.003-1.030 N UA BLOOD DIPSTICK (test code = RADHA) NEGATIVE Indra/mm3 NEGATIVE UA PH DIPSTICK (test code = ABDIFATAH) 6.0 5.0-9.0 N UA PROTEIN DIPSTICK (test code = PROU) 30 MG/DL NEGATIVE A UA UROBILINIOGEN DIPSTICK (test code = URO) NORMAL MG/DL NORMAL UA NITRITE DIPSTICK (test code = CHIKA) NEGATIVE NEGATIVE UA LEUKOCYTE ESTERASE DIPSTICK (test code = LEUU) NEGATIVE /mm3 NEG ATIVE UA CULTURE NEEDED? (test code = UACULT) Criteria Culture Chk UA [id number] 17:53:00* Test Item Value Reference Range Interpretation Comments UA RBC (test code = RBCU) RBC/HPF 0-3 UA WBC (test code = XWBCU) WBC/HPF 0-5 UA EPITHELIAL CELLS (test code = EPIU) EPI/HPF FEW UA BACTERIA (test code = XBACU) NONE
--- NOTE | 2019-08-07 18:21 | Emergency Department Note ---
History of Present Illnes History of Present Illness Chief Complaint: Genitourinary History of Present Illness This is a 19 year old female .c/o dysuria ua frequency x 1 wk c/o n/v HERE FOR BURNING WITH URINATION AND FREQUENCY FOR A WEEK, ALSO REPORTS INTERMITTENT VOMITING THROUGHOUT THE DAY. Historian: Patient Arrival Mode: Car Onset (how long ago): week(s) (1 wk) Location: dysuria Quality: mild Severity: mild Onset quality: gradual Duration (how long): week(s) (x1 wk) Progression: unchanged Context: recent illness, recent surgery, recent immobilization, recent travel, trauma/injury, new medications, hx of DVT/PE, non-compliance w/ medications, other Relieving factors: none Exacerbating factors: none Treatments prior to arrival: none (BRENNEN HOUSTON) Past Medical/Family History Physician Review I have reviewed the patient's past medical and family history. Any updates have been documented here. (BRENNEN HOUSTON) Past Medical History Recent Fever: No Clinical Suspicion of Infectio: No New/Unexplained Change in Ment: No Past Medical History: None Past Surgical History: None (BRENNEN HOUSTON) Social History Smoking Cessation: Never Smoker Alcohol Use: None Any Illegal Drug Use: No TB Exposure/Symptoms: No Physically hurt or threatened: No (BRENNEN HOUSTON) Family History Family history of heart diseas: No (BRENNEN HOUSTON) Other Any Pre-Existing Lines (PICC,: No (BRENNEN HOUSTON) Review of Systems Review of Systems Constitutional: no symptoms EENTM: no symptoms Cardiovascular: no symptoms Respiratory: no symptoms Gastrointestinal: no symptoms Genitourinary: dysuria, frequency Musculoskeletal: no symptoms Neurological: no symptoms Psychological: no symptoms Endocrine: no symptoms Hematological/Lymphatic: no symptoms Review of other systems All other systems reviewed and negative. (BRENNEN HOUSTON) Physical Exam Related Data Allergies: Coded Allergies: No Known Allergies (Unverified , 08/07/19) Triage Vital Signs Vital Signs Date Time Temp Pulse Resp B/P (MAP) Pulse Ox O2 Delivery O2 Flow Rate FiO2 08/07/19 17:03 97.8 88 16 108/75 98 Vital signs reviewed: Yes (BRENNEN HOUSTON) Physical Exam CONSTITUTIONAL Constitutional: well-developed, well-nourished HENT HENT: normocephalic, atraumatic, oropharynx clear/moist, nose normal HENT L/R: left ext ear normal, right ext ear normal EYES Eyes: PERRL, conjunctivae normal NECK Neck: ROM normal PULMONARY Pulmonary: effort normal, breath sounds normal CARDIOVASCULAR Cardiovascular: regular rhythm, heart sounds normal, capillary refill normal, normal rate GASTROINTESTINAL Abdominal: soft, nontender, bowel sounds normal GENITOURINARY Genitourinary: other (c/o dysuria ) SKIN Skin: warm, dry MUSCULOSKELETAL Musculoskeletal: ROM normal NEUROLOGICAL Neurological: alert, oriented x 3, no gross motor or sensory deficits PSYCHOLOGICAL Psychological: mood/affect normal, judgement normal (BRENNEN HOUSTON) Results Laboratory Laboratory Laboratory Tests Test 08/07/19 17:11 Urine Color Yellow (YELLOW) Urine Clarity Sl cloudy (CLEAR) Urine pH 7 (5 - 7) Urine Specific [place] 1.025 (1.010-1.025) Urine Protein Negative (NEGATIVE) Urine Glucose (UA) Negative (NEGATIVE) Urine Ketones Negative (NEGATIVE) Urine Blood Negative (NEGATIVE) Urine Nitrite Negative (NEGATIVE) Urine Bilirubin Negative (NEGATIVE) Urine Urobilinogen 1 mg/dL (0.2 - 1) Urine Leukocyte Esterase Negative (NEGATIVE) Urine RBC None /HPF (0-5) Urine WBC None /HPF (0-5) Urine Epithelial Cells Few /LPF (NONE) Urine Bacteria Few /HPF (NONE) Urine Test Negative (NEGATIVE) Lab results reviewed: Yes (JUANA ROSALES DO) Imaging Imaging results reviewed: Yes Impressions [place] [id number] Patient Name: DANK GARNICA MR #: [id number] : 2000 Age/Sex: 19/F Req #: [id number] Adm Physician: Ordered by: JUANA ROSALES DO Report #: [id number] Location: Room/Bed: Procedure: [id number] CT/CT ABDOMEN/PELVIS WO Exam Date: 08/07/19 Exam Time: 1949 REPORT STATUS: Signed EXAM: CT Abdomen and Pelvis WITHOUT contrast INDICATION: ^lower abd pain ^[id number] ^1950 COMPARISON: None. TECHNIQUE: Abdomen and pelvis were scanned utilizing a multidetector helical scanner from the lung base to the pubic symphysis without administration of IV contrast. Absence of intravenous contrast decreases sensitivity for detection of focal lesions and vascular pathology. Coronal and sagittal reformations were obtained. Routine protocol was performed. Dose modulation, iterative reconstruction, and/or weight based adjustment of the mA/kV was utilized to reduce the radiation dose to as low as reasonably achievable. IV CONTRAST: None. ORAL CONTRAST: None RADIATION DOSE: Total DLP: 412.97 mGy*cm Estimated effective dose: (DLP x 0.015 x size factor) mSv COMPLICATIONS: None FINDINGS: LINES and TUBES: None. LOWER THORAX: Lung bases are clear. Heart size normal. HEPATOBILIARY: No focal hepatic lesions. No biliary ductal dilation. GALLBLADDER: No radio-opaque stones or sludge. No wall thickening. SPLEEN: No splenomegaly. PANCREAS: No focal masses or ductal dilatation. ADRENALS: No adrenal nodules KIDNEYS/URETERS: No hydronephrosis. No cystic or solid mass lesions. No stones. GI TRACT: No abnormal distention, wall thickening, or evidence of bowel obstruction. Appendix is normal. PELVIC ORGANS/BLADDER: Urinary bladder appears unremarkable. Uterus appears retroverted. No discrete abnormal mass or fluid collection in the pelvis. LYMPH NODES: There are mildly prominent lymph nodes mainly in the right lower quadrant, measuring up to 7 mm (series 3, image 105. Scattered additional nodes are seen in the deep mesentery. VESSELS: There is no dilatation of the abdominal aorta. PERITONEUM / RETROPERITONEUM: No pneumoperitoneum or ascites. BONES: No acute or suspicious bony lesion. SOFT TISSUES: Superficial surrounding soft tissue unremarkable. IMPRESSION: 1. No evidence for bowel dilatation or obstruction. The appendix appears normal. 2. There are mildly prominent nodes in the right lower quadrant and additional scattered small nodes in the mesentery. This may be seen with mesenteric adenitis or other reactive adenopathy. 3. No other specific acute abnormality identified in the abdomen or pelvis. Staff: Yousif Signed by: Dr. Allyn Fisher M.D. on 08/07/2019 8:54 PM Dictated By: ALLYN FISHER MD 53 Transcribed By: JIGAR on 08/07/192053 COPY TO: JUANA ROSALES DO~ (JUANA ROSALES DO) Critical Care Time Subsequent provider I assumed direction of critical care for this patient from another provider of my specialty. (BRENNEN HOUSTON) Assessment & Plan Reassessment Reassessment This is a 19 year old female .c/o dysuria ua frequency x 1 wk c/o n/v (BRENNEN HOUSTON) Assessment & Plan Final Impression: (1) Urinary tract infection Assessment & Plan 1899 care of pt turned over to Dr Winsome cartwright pending (BRENNEN HOUSTON) Final Impression: (1) Urinary tract infection (2) Mesenteric adenitis Assessment & Plan Labs and CTS reviewed with patient, Patient given additonal Rx of Tylenol #3 for pain control (JUANA ROSALES DO) Depart Disposition: HOME, SELF-CARE Last Vital Signs Date Time Temp Pulse Resp B/P (MAP) Pulse Ox O2 Delivery O2 Flow Rate FiO2 08/07/19 17:03 97.8 88 16 108/75 98 (BRENNEN HOUSTON) Last Vital Signs Date Time Temp Pulse Resp B/P (MAP) Pulse Ox O2 Delivery O2 Flow Rate FiO2 08/07/19 21:27 73 17 100 08/07/19 18:59 98.5 113/69 (JUANA ROSALES DO) Medications in the ED Ketorolac Tromethamine 60 mg ONCE ONCE IM Last administered on 08/07/19at 21:08; Admin Dose 60 MG; Start 08/07/19 at 20:30; Stop 08/07/19 at 20:31; Status DC (JUANA ROSALES DO) Physician Attestation Provider Attestation The patient's history, exam findings, diagnostics, and a summary of any interventions or procedures was reviewed in detail with our JACI. I personally interviewed and examined the patient, and I have reviewed and agree with the HPI andexam. My personal exam shows [lower abdominal pain. CTS ,UA, and labs reviewed]. I confirm the diagnosis as documented by the JACI. I have reviewed and agree with the care plan articulated in the disposition section. Patient given Rx tylenol #3 (JUANA ROSALES DO) BRENNEN HOUSTON Aug 07, 2019 18:21 JUANA ROSALES DO Aug 07, 2019 21:17
[2019-08-07 18:54] LABS: BILIRUBIN,URINE NEGATIVE (NEGATIVE); CLARITY,URINE SL CLOUDY (CLEAR); COLOR,URINE YELLOW (YELLOW); KETONES,URINE NEGATIVE (NEGATIVE); LEUKOCYTE ESTERASE ,URINE NEGATIVE (NEGATIVE); NITRITE,URINE NEGATIVE (NEGATIVE); PROTEIN,URINE DIPSTICK NEGATIVE (NEGATIVE); URINE UROBILINOGEN 1 mg/dL (0.2 - 1)
--- NOTE | 2019-08-07 19:01 | NUR ---
report given to Chuck COSTA
[2019-08-07 19:24] LABS: BACTERIA,URINE FEW /HPF; EPITHELIAL CELLS,URINE FEW /LPF
[2019-08-07] MEDS ORDERED: KETOROLAC TROMETHAMINE 60 MG/2 ML VIAL IM ONE (20:30)
--- NOTE | 2019-08-07 20:58 | Diagnostic Imaging Report ---
EXAM: CT Abdomen and Pelvis WITHOUT contrast INDICATION: ^lower abd pain ^[id number] ^1950 COMPARISON: None. TECHNIQUE: Abdomen and pelvis were scanned utilizing a multidetector helical scanner from the lung base to the pubic symphysis without administration of IV contrast. Absence of intravenous contrast decreases sensitivity for detection of focal lesions and vascular pathology. Coronal and sagittal reformations were obtained. Routine protocol was performed. Dose modulation, iterative reconstruction, and/or weight based adjustment of the mA/kV was utilized to reduce the radiation dose to as low as reasonably achievable. IV CONTRAST: None. ORAL CONTRAST: None RADIATION DOSE: Total DLP: 412.97 mGy*cm Estimated effective dose: (DLP x 0.015 x size factor) mSv COMPLICATIONS: None FINDINGS: LINES and TUBES: None. LOWER THORAX: Lung bases are clear. Heart size normal. HEPATOBILIARY: No focal hepatic lesions. No biliary ductal dilation. GALLBLADDER: No radio-opaque stones or sludge. No wall thickening. SPLEEN: No splenomegaly. PANCREAS: No focal masses or ductal dilatation. ADRENALS: No adrenal nodules KIDNEYS/URETERS: No hydronephrosis. No cystic or solid mass lesions. No stones. GI TRACT: No abnormal distention, wall thickening, or evidence of bowel obstruction. Appendix is normal. PELVIC ORGANS/BLADDER: Urinary bladder appears unremarkable. Uterus appears retroverted. No discrete abnormal mass or fluid collection in the pelvis. LYMPH NODES: There are mildly prominent lymph nodes mainly in the right lower quadrant, measuring up to 7 mm (series 3, image 105. Scattered additional nodes are seen in the deep mesentery. VESSELS: There is no dilatation of the abdominal aorta. PERITONEUM / RETROPERITONEUM: No pneumoperitoneum or ascites. BONES: No acute or suspicious bony lesion. SOFT TISSUES: Superficial surrounding soft tissue unremarkable. IMPRESSION: 1. No evidence for bowel dilatation or obstruction. The appendix appears normal. 2. There are mildly prominent nodes in the right lower quadrant and additional scattered small nodes in the mesentery. This may be seen with mesenteric adenitis or other reactive adenopathy. 3. No other specific acute abnormality identified in the abdomen or pelvis. Staff: Yousif Signed by: Dr. Ean Dodd M.D. on 08/07/2019 8:54 PM
[2019-08-07 21:27] VITALS: BP 112/86
== END 2019-08-07 21:41 | disposition home or self-care (01) ==
LOC: ER 16:31
DX: R30.0 Dysuria (principal); R11.2 Nausea with vomiting, unspecified; N39.0 Urinary tract infection, site not specified; I88.0 Nonspecific mesenteric lymphadenitis
CPT/HCPCS: 74176; 81001; 81025; 87086; 99283; J1885

== ENCOUNTER 2020-03-31 15:07 | Emergency (ER) | payer SELFPAY ==
[~2020-03-31] VITALS: Ht 175.3 cm; Wt 83.0 kg
[2020-03-31 17:55] VITALS: BP 123/80
== END 2020-03-31 17:56 | disposition home or self-care (01) ==
LOC: ER 15:47
DX: S02.2XXA Fracture of nasal bones, initial encounter for closed fracture (principal); S01.511A Laceration without foreign body of lip, initial encounter; W10.8XXA Fall (on) (from) other stairs and steps, initial encounter; Y93.01 Activity, walking, marching and hiking; Y92.008 Other place in unspecified non-institutional (private) residence as the place of occurrence of the external cause
CPT/HCPCS: 70450; 70486; 99283